=== PATIENT | female | born 2000 | race African-American/Black ===

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

== ENCOUNTER 2019-02-16 22:10 | Emergency (ER) | payer MEDICAID ==
[2019-02-16] MEDS ORDERED: ACETAMINOPHEN 325 MG TABLET PO ONE (23:00)
[2019-02-16] MEDS ORDERED: IBUPROFEN 600 MG TABLET PO ONE (23:00)
--- NOTE | 2019-02-16 23:03 | ER Document Report ---
ED Medical Screen (RME) - General Chief Complaint: right ankle swelling Stated Complaint: RIGHT ANKLE SWOLLEN/PAIN Time Seen by Provider: 02/16/19 22:53 Notes: Patient is a 19-year-old female who presents emergency department with a chief complaint of right ankle pain. She has had her pain off the past month. She cannot recall if she had twisted her ankle or injured it. She states that it hurts when she walks. She has not taken any ibuprofen or Tylenol to help with the pain. Exam: Tender right lateral ankle. I have greeted and performed a rapid initial assessment of this patient. A comprehensive ED assessment and evaluation of the patient, analysis of test results and completion of medical decision making process will be conducted by an additional ED providers. TRAVEL OUTSIDE OF THE [place] IN LAST 30 DAYS: No - Related Data Allergies/Adverse Reactions: Penicillins Allergy (Verified 02/16/19 22:52) Past Medical History - Social History Chew tobacco use (# tins/day): No Frequency of alcohol use: None Drug Abuse: None Pulmonary Medical History: Reports: Hx Asthma Renal/ Medical History: Denies: Hx Peritoneal Dialysis - Immunizations Immunizations up to date: Yes Hx Diphtheria, Pertussis, Tetanus Vaccination: Yes Physical Exam - Vital signs Vitals: Temp Pulse Resp BP Pulse Ox 98.4 F 78 17 113/67 100 02/16/19 22:23 02/16/19 22:23 02/16/19 22:23 02/16/19 22:23 02/16/19 22:23 Course - Vital Signs Vital signs: Temp Pulse Resp BP Pulse Ox 98.4 F 78 17 113/67 100 02/16/19 22:23 02/16/19 22:23 02/16/19 22:23 02/16/19 22:23 02/16/19 22:23
--- NOTE | 2019-02-16 23:43 | RADIOLOGY REPORT (SQ) ---
3 VIEWS OF RIGHT ANKLE EXAM DATE: 02/16/2019 11:00 PM CDT HISTORY: right ankle pain. COMPARISON: None. FINDINGS: The ankle mortise is preserved on these nonstress views. No acute fracture is seen. There is mild surrounding soft tissue swelling. IMPRESSION: No acute fracture or malalignment.
--- NOTE | 2019-02-17 00:37 | ER Document Report ---
HPI - HPI Time Seen by Provider: 02/16/19 22:53 Pain Level: 3 Context: Patient is a 19-year-old female that comes to the emergency department for chief complaint of right ankle pain and swelling. She states that initially almost 3 months ago she injured the ankle badly and she had bruising and swelling for a while. She states it did resolve but then 2 days ago she started having ankle pain and it swelled again. She states she is very active but she is unsure of a particular injury recently. She denies any other complaints, she denies , only past medical history reported is asthma, family at bedside. - REPRODUCTIVE LMP: 01/23/19 Reproductive: DENIES: : Past Medical History - General Information source: Patient, Parent - Social History Smoking Status: Never Smoker Chew tobacco use (# tins/day): No Frequency of alcohol use: None Drug Abuse: None Lives with: Family Family History: Arthritis, CAD, CVA, DM, Hypertension, Thyroid Disfunction Patient has suicidal ideation: No Patient has homicidal ideation: No Pulmonary Medical History: Reports: Hx Asthma Renal/ Medical History: Denies: Hx Peritoneal Dialysis - Immunizations Immunizations up to date: Yes Hx Diphtheria, Pertussis, Tetanus Vaccination: Yes Vertical Provider Document - CONSTITUTIONAL General Appearance: WD/WN, No Apparent Distress - INFECTION CONTROL TRAVEL OUTSIDE OF THE [place] IN LAST 30 DAYS: No - HEENT HEENT: Atraumatic, Normal ENT Exam, Normocephalic - NECK Neck: Normal Inspection - RESPIRATORY Respiratory: Breath Sounds Normal, No Respiratory Distress, Chest Non-Tender - CARDIOVASCULAR Cardiovascular: Regular Rate, Regular Rhythm - GI/ABDOMEN Gastrointestinal: Abdomen Soft, Abdomen Non-Tender - BACK Back: Normal Inspection. negative: Abnormal Inspection - MUSCULOSKELETAL/EXTREMETIES Musculoskeletal/Extremeties: MAEW, FROM, Tender - Tenderness over the right lateral malleolus and minimally over the top of the foot at the base of the ankle. There is mild soft tissue swelling. No contusion or discoloration, no erythema, range of motion intact. Normal capillary refill and sensation. Normal leg, knee, hip exam Course - Re-evaluation Re-evalutation: There is small amount of soft tissue swelling on the x-ray and on exam but no signs of significant trauma, no signs of infection, no concerning findings otherwise. The area will be treated as a sprain. Placed in Lacho wrap and ankle stirrup, discussed recommendations, follow-up, return precautions. Patient and family state understanding and agreement. - Vital Signs Vital signs: Temp Pulse Resp BP Pulse Ox 98.4 F 78 17 113/67 100 02/16/19 22:23 02/16/19 22:23 02/16/19 22:23 02/16/19 22:23 02/16/19 22:23 - Diagnostic Test Radiology reviewed: Image reviewed, Reports reviewed Procedures - Immobilization right ankle Pre-Proc Neuro Vasc Exam: Normal Immobilizer type: Lacho wrap, Ankle stirrup Performed by: RN Post-Proc Neuro Vasc Exam: Normal Alignment checked and good: Yes Discharge - Discharge Clinical Impression: Right ankle swelling Condition: Stable Disposition: HOME, SELF-CARE Additional Instructions: The x-ray and your exam are consistent with soft tissue swelling indicating a ligament injury (a sprain). No bony abnormality or other concerning findings seen. I recommend you use the ankle stirrup/wrap, use the crutches for the next 2 to 3 days, take the anti-inflammatory as prescribed, ice 3-4 times a day for 10 to 15 minutes, and elevate when possible. Symptoms should resolve with time, when symptoms completely resolve resume normal activity. Follow-up with primary care. Return if you worsen including severe swelling or pain, developing redness or fever, or any other concerning symptoms. Prescriptions: Naproxen 500 mg PO BID PRN #20 tablet PRN Reason: Forms: Return to Work Referrals: ERICK HUGHES MD [Primary Care Provider] - Follow up as needed
[2019-02-17 01:19] VITALS: BP 114/68
== END 2019-02-17 01:21 | disposition home or self-care (01) ==
LOC: ER 22:10
DX: M25.471 Effusion, right ankle (principal); M25.571 Pain in right ankle and joints of right foot; J45.909 Unspecified asthma, uncomplicated
CPT/HCPCS: 73610; L4350; J3490 ×2; 99283

== ENCOUNTER 2019-04-22 19:24 | Emergency (ER) | payer MEDICAID ==
[2019-04-22 19:40] VITALS: BP 108/72
--- NOTE | 2019-04-22 20:09 | ER Document Report ---
HPI - HPI Time Seen by Provider: 04/22/19 20:00 Pain Level: 4 Notes: Patient is a 19-year-old female with no significant past medical history aside from recurrent right ankle pain who presents complaining of increased pain recently from normal use. Patient states that she did stay off it last time she injured it for about 2 weeks and was doing well, but started developing some soreness thereafter. Patient states that the pain is in the same area as it has been. She did have unremarkable imaging at her previous visit. There is no new injury or trauma. She is able to eat and drink without difficulty. She is urinating normally. No other concerns or complaints. Denies any headache, fever, neck pain, URI, sore throat, chest pain, palpitations, syncope, cough, shortness of breath, wheeze, dyspnea, abdominal pain, nausea/vomiting/diarrhea, urinary retention, dysuria, hematuria, loss of control of bowel or bladder, numbness/tingling, muscle paralysis/weakness, or rash. - ROS Systems Reviewed and Negative: Yes All other systems reviewed and negative - REPRODUCTIVE LMP: 1 wk ago Reproductive: DENIES: : Past Medical History - Social History Smoking Status: Current Every Day Smoker Family History: Arthritis, CAD, CVA, DM, Hypertension, Thyroid Disfunction Patient has suicidal ideation: No Patient has homicidal ideation: No Pulmonary Medical History: Reports: Hx Asthma Renal/ Medical History: Denies: Hx Peritoneal Dialysis - Immunizations Immunizations up to date: Yes Hx Diphtheria, Pertussis, Tetanus Vaccination: Yes Vertical Provider Document - CONSTITUTIONAL Agree With Documented VS: Yes Notes: PHYSICAL EXAMINATION: GENERAL: Well-appearing, well-nourished and in no acute distress. LUNGS: Breath sounds clear to auscultation bilaterally and equal. No wheezes rales or rhonchi. HEART: Regular rate and rhythm without murmurs, rubs, gallops. Musculoskeletal: Rt foot/ankle: No ecchymosis, swelling, or deformity. FROM to passive/active. Strength 5+/5. N/V intact distal. + tenderness to the area of the ATFL. No bony tenderness of the foot/ankle. Achilles intact. Lis Franc maneuver neg. Anterior drawer neg. Extremities: No cyanosis, clubbing, or edema b/l. Peripheral pulses 2+. Capillary refill less than 3 seconds. NEUROLOGICAL: Normal speech, limping gait. Normal sensory, motor exams PSYCH: Normal mood, normal affect. SKIN: Warm, Dry, normal turgor, no rashes or lesions noted. - INFECTION CONTROL TRAVEL OUTSIDE OF THE [place] IN LAST 30 DAYS: No Course - Re-evaluation Re-evalutation: 04/22/19 20:07 Patient is an afebrile, well-hydrated, 19-year-old female who presents to the ED with Rt ankle pain which I suspect to be a sprain versus strain, possible deconditioning as well. Vitals are acceptable without any significant tachycardia, tachypnea, or hypoxia. PE is otherwise unremarkable for any neurovascular compromise, obvious tendon/ligament rupture, obvious fracture/dislocation, septic joint. [place] ankle rules negative. Patient declined any Tylenol or ice. Patient is nontoxic-appearing. Patient is able to ambulate and weight-bear although she is limping. No other labs or imaging warranted at this time based on H&P. Conservative measures otherwise for symptoms. Recheck with your PCM in 3-5 days. Patient to schedule an appoint ment with podiatry. Return to the ED with any worsening/concerning symptoms otherwise as reviewed in discharge. Patient is in agreement. - Vital Signs Vital signs: Temp Pulse Resp BP Pulse Ox 97.4 F 79 16 108/72 97 04/22/19 19:54 04/22/19 19:35 04/22/19 19:54 04/22/19 19:35 04/22/19 19:54 Discharge - Discharge Clinical Impression: Right ankle pain Qualifiers: Chronicity: acute Qualified Code(s): M25.571 - Pain in right ankle and joints of right foot Condition: Stable Disposition: HOME, SELF-CARE Additional Instructions: Rest, Ice, Compression, Elevation Tylenol/ibuprofen as needed Light stretches daily Strength exercises as able Moist heat and massage may help F/u with your PCP in 3-5 days for a recheck Schedule an appointment with podiatry for further evaluation and management Return to the ED with any worsening symptoms and/or development of fever, headache, chest pain, palpitations, syncope, shortness of breath, trouble breathing, abdominal pain, n/v/d, muscle weakness/paralysis, numbness/tingling, swelling, redness, or other worsening symptoms that are concerning to you. Forms: Smoking Cessation Education, Return to Work Referrals: ERICK HUGHES MD [Primary Care Provider] - Follow up as needed JAYCE KELLEY DPM [ACTIVE STAFF] - Follow up in 3-5 days
== END 2019-04-22 20:14 | disposition home or self-care (01) ==
LOC: ER 19:24
DX: M25.571 Pain in right ankle and joints of right foot (principal); Z87.828 Personal history of other (healed) physical injury and trauma; F17.200 Nicotine dependence, unspecified, uncomplicated; J45.909 Unspecified asthma, uncomplicated
CPT/HCPCS: 99283